=== PATIENT | female | born 1990 | race Caucasian/White ===

== ENCOUNTER 2021-12-06 07:25 | Inpatient (IN) | payer OTHER, SELFPAY ==
[2021-12-06] VITALS (32 sets, daily range): BP systolic 93–129; BP diastolic 46–77; PULSE 55–130; RESP 14–18; TEMP 36.1–36.8; O2SAT 95–100; BMI 31.1
[2021-12-06 07:34] LABS: ROM Internal Control Test YES-OK TO RESULT pt. (Internal QC); ROM Patient Test POSITIVE (Negative)
[2021-12-06 08:02] LABS: Absolute Lymphocyte Count 2.55 X10^3/uL (0.83-4.51); Absolute Neutrophil Count 6.8 X10^3/uL (2.0-7.7); Basophil# 0.02 X10^3/uL; Basophil% 0.2 % (0-1); Eosinophil# 0.12 X10^3/uL; Eosinophils% 1.2 % (0-5); Hematocrit 34.1 % (37-47); Hemoglobin 12.4 g/dL (12.0-15.0); Lymphocyte # 2.55 X10^3/ul (0.83-4.51); Lymphocyte % 25.2 % (19-41); Mean Corp Hgb Conc 36.4 g/dL (32-36); Mean Corpuscular Volume 82.6 fL (81-99); Mean Platelet Vol. 9.3 fl (6.2-12.0); Monocyte# 0.57 X10^3/uL; Monocyte% 5.6 % (0-10); NRBC Flagged by Analyzer 0 % (0-5); Neutrophil # 6.79 X10^3/uL (2.7-7.7); Neutrophil % 67.3 % (47-70); Platelet Count 258 K/mm3 (150-450); RBC Distribution Width CV 12.5 % (11.6-14.6); RBC Distribution Width SD 37.2 fl (35.1-43.9); Red Blood Count 4.13 M/mm3 (4.2-5.4); White Blood Count 10.1 K/mm3 (4.4-11.0)
[2021-12-06 09:25] LABS: Group B Strep DNA By PCR Negative (Negative); Internal Control PASS; Probe Check PASS; Specimen Processing Control PASS
--- NOTE | 2021-12-06 09:40 | PCM.PN.BLA ---
Progress Note 35 weeks, SROM, BREECH- Attempted ECV. pt was counseled on risks of ECV including but no limited to pain, abruption, intolerance, need for cs. back on maternal right- first attmept for forward roll with JACKIE gay assisting. Unable to rotate. Second attempt at backward roll, unable to successfully rotate. At this time decision to stop attempt at ECV and proceed with CS. OR team notified.
--- NOTE | 2021-12-06 12:57 | HP.PCM.OB_ITS ---
HPI - General General Date of Admission: 12/06/21 HPI Narrative LILLY KASPER, is a 31 F who presents at 35w1d by LMP. Presents with PPROM at 0130 am for clear fluid. Presented to labor and delivery and admitted for positive ROM plus. Irregular contractions and rating 2/10. OB history of thyroid disorder. PFSH PFS Medical History (Updated 12/06/21 @ 18:51 by Ericka Arboleda CNM) Appendicitis Thyroid disorder Medical History no medical history Home Medications cholecalciferol (vitamin D3) [Vitamin D3] 1,000 mcg PO DAILY 12/06/21 [History Last Taken 12/04/21] levothyroxine [Synthroid] 100 mcg PO DAILY 12/06/21 [History Last Taken 12/05/21] [id number] [] 1 tab PO DAILY 12/06/21 [History Last Taken 12/05/21] Allergy/AdvReac Type Severity Reaction Status Date / Time amoxicillin Allergy Rash Verified 12/06/21 06:49 Surgical History (Updated 12/06/21 @ 08:04 by Corin Mejía) H/O partial thyroidectomy Social History Smoking Status: Never smoker History Elective abortions Hx Para 1 Spontaneous abortions Hx # Term Pregnancies Ectopic pregnancies Hx # Pregnancies Multiple births # of living children NST FHR Rate Baby A Baseline: 125 Variability:: Moderate Accelerations:: 15 x 15 Decelerations:: None FHR Category:: Category I Uterine Activity:: Irregular, mild to moderate ROS Constitutional Constitutional: Reports systems reviewed and no addt'l complaints, except as documented; Denies headache(s) Eyes Eyes: Denies acute decrease in peripheral vision, blurry vision or change in vision ENT HEENT: Reports systems reviewed and no addt'l complaints, except as documented Cardiovascular Cardiovascular: Denies chest pain or dizziness Respiratory/Chest Respiratory/Chest: Denies cough, dyspnea, dyspnea on exertion, shortness of breath at rest or shortness of breath with exertion Gastrointestinal Gastrointestinal: Denies abdominal pain, diarrhea, nausea or vomiting Genitourinary Genitourinary: Denies abdominal discomfort or movement Musculoskeletal Musculoskeletal: Denies limited range of motion Integumentary Integumentary: Reports systems reviewed and no addt'l complaints, except as do cumented Neurologic Neurologic: Reports systems reviewed and no addt'l complaints, except as documented Psychiatric Psychiatric: Reports systems reviewed and no addt'l complaints, except as documented Endocrine Endocrinology: Reports systems reviewed and no addt'l complaints, except as documented Hematologic/Lymphatic Hematologic/Lymphatic: Reports systems reviewed and no addt'l complaints, except as documented Allergic/Immunologic Allergic/Immunologic: Reports systems reviewed and no addt'l complaints, except as documented Vital Signs Vital Signs Vital Signs: 12/06/21 06:46 12/06/21 06:47 12/06/21 09:10 Temperature 97.7 F L Temperature Source Temporal Pulse Rate 80 105 H Blood Pressure 117/76 113/77 BP Systolic 117 113 BP Diastolic 76 77 Pulse Ox 98 97 12/06/21 09:11 12/06/21 09:12 12/06/21 12:02 Temperature 97.5 F L Temperature Source Temporal Temporal Pulse Rate 87 Blood Pressure 129/72 H BP Systolic 129 BP Diastolic 72 Pulse Ox 98 98 12/06/21 12:03 Temperature 97.9 F Temperature Source Pulse Rate Blood Pressure BP Systolic BP Diastolic Pulse Ox Weight Weight: 199 lb 3.2 oz Body Mass Index (BMI) 31.1 Physical Exam Narrative: Per Lotus Saba CNM Manual OB Exam: estimated gestational size appropriate, presentation cephalic, dilated 1cm, effaced 50 and station -2 Amniotic Fluid: clear amniotic fluid and ROM+plus Labs Labs Labs: Blood Type A POSITIVE Antibody Screen NEGATIVE Hct 34.1 % (37-47) L Hgb 12.4 g/dL (12.0-15.0) Group B Strep DNA Negative (Negative) RPR negative Rubella Immune HBsAG negative Hep C negative HIV negative A positive GC/CT negative GBS negative Assessment & Plan (1) premature rupture of membranes (PPROM) delivered, current hospitalization: (2) 35 weeks gestation of : (3) Thyroid disorder: PLAN: 1) Admit to labor and delivery 2) Routine labs 3) GBS 4) COVID test 5) collaborative physician and notified of patient status 6) Continuous EFM
[2021-12-06] MEDS: 0.9% Saline Lock 10 ML Syringe IV (16:25)
[2021-12-06] MEDS: Lactated Ringers 500 ML 999 ML IV (16:25)
[2021-12-06] MEDS: Lactated Ringers 1,000 ML 200 ML IV (16:56)
--- NOTE | 2021-12-06 18:17 | PN.OBGYN_ITS ---
Subjective Subjective Resting comfortably in bed, at bedside. Feels baby is in a different position, feeling different pressure. Objective Data Objective Data Vital Signs: Vital Signs Temp Pulse BP Pulse Ox 97.7 F L 75 113/69 97 12/06/21 17:11 12/06/21 17:11 12/06/21 17:11 12/06/21 17:11 Weight: 199 lb 3.2 oz Body Mass Index (BMI) 31.1 Lab / Micro Data Result Diagrams: 12/06/21 07:45 Labs: Laboratory Results - last 24 hr 12/06/21 06:57: Group B Strep DNA Negative, Specimen Comment Not Reportable 12/06/21 07:00: Vag Amniotic Fld Detect POSITIVE H 12/06/21 07:45: WBC 10.1, RBC 4.13 L, Hgb 12.4, Hct 34.1 L, MCV 82.6, MCH 30.0, MCHC 36.4 H, RDW Std Deviation 37.2, RDW Coeff of Yonatan 12.5, Plt Count 258, MPV 9.3, Immature Gran % (Auto) 0.500, Neut % (Auto) 67.3, Lymph % (Auto) 25.2, [place] % (Auto) 5.6, Eos % (Auto) 1.2, Baso % (Auto) 0.2, Absolute Neuts (auto) 6.8, Absolute Lymphs (auto) 2.55, Nucleated RBC % 0 12/06/21 07:45: Blood Type A POSITIVE, Antibody Screen NEGATIVE Micro: Microbiology 12/06/21 07:45 Nasal Secretion SARS-CoV-2 Antigen (Rapid) - Final Physical Exam Narrative: Limited bedside US showing breech Manual OB Exam: dilated 1cm, effaced 60% and station -3 NST FHR Rate Baby A Baseline: 125 Variability:: Moderate Accelerations:: 15 x 15 Decelerations:: None FHR Category:: Category I Uterine Activity:: Irregular every 5 minutes, mild to moderate Assessment & Plan (1) 35 weeks gestation of : (2) premature rupture of membranes (PPROM) delivered, current hospitalization: (3) Breech presentation: PLAN: 1) Discussed with patient presentation now breech. Discussed option for ECV or primary section. 2) notified and will be coming to labor and delivery for evaluation.
--- NOTE | 2021-12-06 18:45 | PCM.PN.BLA ---
Progress Note pt seen at bedside after call from JACKIE Arboleda regarding breech presentation. Pt SROM 1:30 current vaginal exam /-3, breech- attempted cephalic version after discussion of risks /benefits/alternatives. Failed Attempted ECV- pt counseled on Primary CS including risks of bleeding, infection, injury to pelvic structures including bladder, vessels and other pelvic structures. OR Team notified.
[2021-12-06] MEDS: Cefazolin 2 GM in 0.9% Normal Saline 100 ML IV (19:07)
[2021-12-06] MEDS: Sodium Citrate/Citric Acid 30 ML UDC PO (19:14)
--- NOTE | 2021-12-06 19:53 | EX.PCM.OBRPT ---
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 Presentation: Positive for Complete Breech Amniotic Membrane Rupture Type: Spontaneous Amniotic Fluid Description: Clear Placental Delivery Description: Expressed Placenta Disposition: [facility] Cord Vessel Description: 3 Vessels Cord Entanglement: - (loose body cord ) A Gender: Male (1 minute): 8 (5 minute): 9 Delayed Cord Clamping: Yes Complications Risks of Surgery Discussed w/Patient: Bleeding, Anesthesia Risks, Infection and Injury to surrounding structure(s) including bowel and bladder Complications: none Admit VTE Documentation VTE Present on Admission: Yes VTE Mechan Device Prophylaxis: SCD's VTE Pharm Prophylaxis Ordered: No Reason Prophylaxis Not Ordered: Procedure Not Indicated
[2021-12-06] MEDS: Oxytocin 30 units/NS 500 ml 30 UNITS/500 ML IV.SOLN 167 UNITS IV (20:30)
[2021-12-06] MEDS: Ketorolac 30 MG/ML Syringe IV (20:50)
[2021-12-06] MEDS: Acetaminophen 500 MG Tablet 1000 MG PO (20:51)
--- NOTE | 2021-12-06 22:10 | NURSING ---
RN x2 assist to change maria del carmen pad and clean pt, small amount of blood shadow noted on lt side of dressing after repositioning pt. Blood circled and oncoming RN aware.
--- NOTE | 2021-12-06 22:10 | NURSING ---
Report given to Jennifer COPELAND, taking over pt care at this time.
[2021-12-06] MEDS: Lactated Ringers 1,000 ML 100 ML IV (23:35)
[2021-12-07] VITALS (7 sets, daily range): BP systolic 98–118; BP diastolic 59–68; PULSE 57–70; RESP 16; TEMP 36.4–36.7; O2SAT 97–99
[2021-12-07] MEDS: Ketorolac 30 MG/ML Syringe IV ×3 (03:43→15:15)
[2021-12-07] MEDS: Acetaminophen 500 MG Tablet 1000 MG PO ×4 (03:43→21:27)
--- NOTE | 2021-12-07 03:53 | NURSING ---
Pt refusing to try to get out of bed at this time. Patient states that she is feeling really tired. She would like to try to get out of bed in an hour.
--- NOTE | 2021-12-07 04:58 | PN.OBGYN_ITS ---
Subjective Subjective Patient seen at bedside. Pain controlled. Denies any headache, vision changes, SOB or CP. without difficulty. Objective Data Objective Data Dressing Dry and intact Vital Signs: Vital Signs Temp Pulse Resp BP Pulse Ox 97.8 F 69 16 98/59 L 97 12/07/21 03:46 12/07/21 03:46 12/07/21 03:46 12/07/21 03:46 12/07/21 03:46 Oxygen Delivery Method Room Air Weight: 199 lb 3.2 oz Body Mass Index (BMI) 31.1 Intake & Output: Intake and Output for Last 24 Hours 12/05/21 12/06/21 12/07/21 23:59 23:59 23:59 Intake Total 1954.86 / 1954.86 Output Total 200 / 200 Balance 1754.86 / 1754.86 Lab / Micro Data Result Diagrams: 12/06/21 07:45 Labs: Laboratory Results - last 24 hr 12/06/21 06:57: Group B Strep DNA Negative, Specimen Comment Not Reportable 12/06/21 07:00: Vag Amniotic Fld Detect POSITIVE H 12/06/21 07:45: WBC 10.1, RBC 4.13 L, Hgb 12.4, Hct 34.1 L, MCV 82.6, MCH 30.0, MCHC 36.4 H, RDW Std Deviation 37.2, RDW Coeff of Yonatan 12.5, Plt Count 258, MPV 9.3, Immature Gran % (Auto) 0.500, Neut % (Auto) 67.3, Lymph % (Auto) 25.2, [place] % (Auto) 5.6, Eos % (Auto) 1.2, Baso % (Auto) 0.2, Absolute Neuts (auto) 6.8, Absolute Lymphs (auto) 2.55, Nucleated RBC % 0 12/06/21 07:45: Blood Type A POSITIVE, Antibody Screen NEGATIVE Micro: Microbiology 12/06/21 07:45 Nasal Secretion SARS-CoV-2 Antigen (Rapid) - Final ROS Eyes Eyes: Denies blurry vision, change in vision or spots in vision ENT HEENT: Denies dizziness or headache(s) Cardiovascular Cardiovascular: Denies abdominal pain, chest pain or dyspnea Respiratory/Chest Respiratory/Chest: Denies cough, dyspnea, shortness of breath at rest or shortness of breath with exertion Gastrointestinal Gastrointestinal: Denies abdominal pain, diarrhea or vomiting Genitourinary Genitourinary: Denies change in urinary stream, difficulty urinating or dysuria Musculoskeletal Musculoskeletal: Reports none Integumentary Integumentary: Denies rash Neurologic Neurologic: Denies dizziness, headache(s), memory loss or weakness Physical Exam Narrative Dressing is dry and intact Const alert and no apparent distress General Appearance: cooperative and comfortable Exam Limitations: no limitations HEENT normocephalic Eyes General Eye: normal appearance of both eyes Neck full ROM General: normal visual inspection Chest Chest: symmetrical chest wall rise Resp normal respiratory effort and normal air movement Effort and Inspection: symmetric chest movement Auscultation: clear to auscultation bilaterally Cardio regular rate and regular rhythm GI normal to inspection, nondistended, normoactive bowel sounds Back/Spine normal ROM Extremity full ROM and no calf tenderness General Extremity: normal exam except as noted Skin no rashes or lesions noted Neuro CN's II-XII intact bilaterally Psych mental status grossly normal Assessment & Plan (1) Breech presentation: QUALIFIERS: Fetus number: single or unspecified fetus Qualified Code(s): O32.1XX0 - Maternal care for breech presentation, not applicable or unspecified (2) S/P primary low transverse : (3) Thyroid disorder: (4) 35 weeks gestation of : PLAN: PO Day 1 Primary C/S Pain control support Ambulation Anticipate discharge home tomorrow
[2021-12-07 06:08] LABS: Hematocrit 31.5 % (37-47); Mean Corp Hgb Conc 34.9 g/dL (32-36); Mean Corpuscular Hgb 29.1 pg (27.0-32.0); Mean Corpuscular Volume 83.3 fL (81-99); Mean Platelet Vol. 9.6 fl (6.2-12.0); Platelet Count 226 K/mm3 (150-450); RBC Distribution Width CV 12.4 % (11.6-14.6); RBC Distribution Width SD 37.6 fl (35.1-43.9); Red Blood Count 3.78 M/mm3 (4.2-5.4); White Blood Count 10.2 K/mm3 (4.4-11.0)
[2021-12-07] MEDS: Levothyroxine 100 MCG Tablet PO (06:46)
[2021-12-07] MEDS: Senna/Docusate Sodium 1 Tablet PO (09:16)
[2021-12-07] MEDS: 0.9% Saline Lock 10 ML Syringe IV ×2 (09:17→15:16)
[2021-12-07] MEDS: Ibuprofen 600 MG Tablet PO (21:28)
[2021-12-08 01:30] VITALS: BP 115/64; PULSE 65; RESP 16; TEMP 36.1; O2SAT 97
[2021-12-08] MEDS: Ibuprofen 600 MG Tablet PO ×2 (04:25→10:47)
[2021-12-08] MEDS: Acetaminophen 500 MG Tablet 1000 MG PO ×2 (04:25→10:47)
[2021-12-08] MEDS: Levothyroxine 100 MCG Tablet PO (06:27)
[2021-12-08 08:38] VITALS: BP 113/58; PULSE 66; RESP 16; TEMP 36.3; O2SAT 94
--- NOTE | 2021-12-08 09:00 | PCM.PN.OB ---
Subjective Subjective Patient seen at bedside. Feeling good. Pain is controlled with medications. Ambulating and voiding without difficulty. Had BM today. Denies any headache, dizziness, SOB, or CP. without difficulty. Desires discharge home today. Objective Data Objective Data Vital Signs: Vital Signs Temp Pulse Resp BP Pulse Ox 97.4 F L 66 16 113/58 L 94 12/08/21 08:38 12/08/21 08:38 12/08/21 08:38 12/08/21 08:38 12/08/21 08:38 Oxygen Delivery Method Room Air Weight: 199 lb 3.2 oz Body Mass Index (BMI) 31.1 Intake & Output: Intake and Output for Last 24 Hours 12/06/21 12/07/21 12/09/21 23:59 23:59 00:59 Intake Total 1954.86 / 1954.86 791.67 / 791.67 Output Total 200 / 200 700 / 700 Balance 1754.86 / 1754.86 91.67 / 91.67 Lab / Micro Data Result Diagrams: 12/07/21 05:30 Micro: Microbiology 12/06/21 07:45 Nasal Secretion SARS-CoV-2 Antigen (Rapid) - Final ROS Eyes Eyes: Denies blurry vision, change in vision or spots in vision ENT HEENT: Denies dizziness or headache(s) Cardiovascular Cardiovascular: Denies abdominal pain, chest pain or dyspnea Respiratory/Chest Respiratory/Chest: Denies cough, dyspnea, shortness of breath at rest or shortness of breath with exertion Gastrointestinal Gastrointestinal: Denies abdominal pain, diarrhea or vomiting Genitourinary Genitourinary: Denies change in urinary stream, difficulty urinating or dysuria Musculoskeletal Musculoskeletal: Reports none Integumentary Integumentary: Denies rash Neurologic Neurologic: Denies dizziness, headache(s), memory loss or weakness Physical Exam Narrative Dressing is dry and intact Const alert and no apparent distress General Appearance: cooperative and comfortable Exam Limitations: no limitations HEENT normocephalic Eyes General Eye: normal appearance of both eyes Neck full ROM General: normal visual inspection Chest Chest: symmetrical chest wall rise Resp normal respiratory effort and normal air movement Effort and Inspection: symmetric chest movement Auscultation: clear to auscultation bilaterally Cardio regular rate and regular rhythm GI normal to inspection, nondistended, normoactive bowel sounds Back/Spine normal ROM Extremity full ROM and no calf tenderness General Extremity: normal exam except as noted Skin no rashes or lesions noted Neuro CN's II-XII intact bilaterally Psych mental status grossly normal Assessment & Plan (1) S/P primary low transverse : PLAN: PO #2 Primary C/S Pain control Routine care Continue ambulation D/C home with follow up in office 1 week
--- NOTE | 2021-12-08 09:04 | PCM.DC.SUM ---
Providers Date of Admission: 12/06/21 Primary Care Physician: RODRIGO MAYORGA Reason For Visit: LABOR & DELIVERY Diagnosis Discharge Diagnosis (1) S/P primary low transverse : Status: Acute Code(s): Z98.891 - History of uterine scar from previous surgery Medications at Discharge Home Medications cholecalciferol (vitamin D3) 1,000 mcg PO DAILY 12/06/21 zblkealm-[id number]-[id number]-FA 1 tab PO DAILY 12/06/21 levothyroxine 100 mcg PO DAILY@0600 #0 tab 12/08/21 oxycodone 5 - 10 mg PO Q4H PRN PRN 5 Days #14 tab 12/08/21 Hospital Course Operations section Summary of Care Provided Hospital Course: Patient for primary section. Hospital course was uneventful. Physical Exam Narrative Dressing is dry and intact Const alert and no apparent distress General Appearance: cooperative and comfortable Exam Limitations: no limitations HEENT normocephalic Eyes General Eye: normal appearance of both eyes Neck full ROM General: normal visual inspection Chest Chest: symmetrical chest wall rise Resp normal respiratory effort and normal air movement Effort and Inspection: symmetric chest movement Auscultation: clear to auscultation bilaterally Cardio regular rate and regular rhythm GI normal to inspection, nondistended, normoactive bowel sounds Back/Spine normal ROM Extremity full ROM and no calf tenderness General Extremity: normal exam except as noted Skin no rashes or lesions noted Neuro CN's II-XII intact bilaterally Psych mental status grossly normal Weight / BMI Weight Weight: 199 lb 3.2 oz Body Mass Index (BMI) 31.1 ABG / Lab / Microbiology Data Result Diagrams: 12/07/21 05:30 Microbiology: Microbiology 12/06/21 07:45 Nasal Secretion SARS-CoV-2 Antigen (Rapid) - Final D/C Instructions Discharge Diet: No restrictions May resume sexual activity in: 6-8 weeks Weight Bearing Status: Weight bearing as tolerated Lifting Restrictions: 20 lbs Call your doctor if your incision/area has: Continuous Slow Oozing, Increased Pain/ Swelling, Increased Redness, Foul Smelling Discharge and Swelling at the incision site Call your doctor if you observe: Fever of 101 or Higher, Inability to urinate, Using more than 1 pad per hour, Shortness of breath, Chest pain, Calf discomfort and Uncontrolled pain Remove Dressing in: 5 days Cleanse incision/area with: Soap & Water and Keep Dressing Clean & Dry When: 1 week in office for incision check or sooner if needed 6 weeks Meaningful Use Info Meaningful Use Diagnoses (Choose all that apply): None applicable Discharge Plan Admission Admit Date/Time: 12/06/21 07:25 Primary Reason for Your Visit: Labor and Delivery/ C/S Attending Provider: Lotus Saba Discharge Orders/Prescriptions Prescriptions: New oxycodone 5 mg Tablet 5 - 10 mg PO Q4H PRN PRN (Reason: Pain Score 4-10) 5 Days Qty: 14 RF: 0 levothyroxine 100 mcg Tablet 100 mcg PO DAILY@0600 Qty: 0 RF: 0 Continued twlbzzyk-srn-Ys-FA 1 mg Tablet 1 tab PO DAILY RF: 0 cholecalciferol (vitamin D3) 100 mcg (4,000 unit) Capsule 1,000 mcg PO DAILY RF: 0 Discontinued levothyroxine [Synthroid] 100 mcg Tablet 100 mcg PO DAILY RF: 0 Referrals / Follow Up: RODRIGO MAYORGA [Other] Disposition Disposition (needs filled in before D/C Order can be placed): Home, Self Care
[2021-12-08] MEDS: Senna/Docusate Sodium 1 Tablet PO (10:47)
[2021-12-08 14:15] VITALS: BP 114/66; PULSE 75; RESP 17; TEMP 37.1; O2SAT 95
--- NOTE | 2021-12-12 18:10 | NURSING ---
Mother doing well on follow up call, seeing in area near her, she lives 1 [place]/2 hours away. really liked quentin
== END 2021-12-08 15:35 | disposition home or self-care (01) | DRG 788 ==
LOC: WPOUT 07:28 → WP 07:28
PROVIDERS: Obstetrics & Gynecology; Admitting Provider Advanced Practice Midwife; Referring Provider Advanced Practice Midwife; Visit Provider Advanced Practice Midwife
DX: O42.913 Preterm premature rupture of membranes, unspecified as to length of time between rupture and onset of labor, third trimester (principal); E07.9 Disorder of thyroid, unspecified; O32.1XX0 Maternal care for breech presentation, not applicable or unspecified; O99.284 Endocrine, nutritional and metabolic diseases complicating childbirth; Z20.822 Contact with and (suspected) exposure to COVID-19; O69.82X0 Labor and delivery complicated by other cord entanglement, without compression, not applicable or unspecified; Z3A.35 35 weeks gestation of pregnancy; Z79.890 Hormone replacement therapy; Z79.899 Other long term (current) drug therapy; Z37.0 Single live birth
CPT/HCPCS: 59025; 59050; 84112; 85025; 85027; 86850; 86900; 86901; 87081; 87426; 87653; 99218; J7120; A4216; G0378

== ENCOUNTER 2023-03-29 22:45 | Inpatient (IN) | payer OTHER, SELFPAY ==
[2023-03-29 22:14] VITALS: BMI 31.1
[2023-03-29 22:39] LABS: ROM Internal Control Test YES-OK TO RESULT pt. (Internal QC)
[2023-03-29 22:41] LABS: ROM Patient Test POSITIVE (Negative); Record Kit Lot#, ROM+ K1374
--- NOTE | 2023-03-29 23:13 | PCM.HP.OB ---
HPI - General General Date of Admission: 03/29/23 HPI Narrative LILLY KASPER, is a 33 F who presents at 36w4d with PPROM. Rupture of membranes today at 0200. Labored at home and monitored movement and temperature. Notified the hospital this evening of rupture and presented to hospital. Maternal Data Information ROSA M Calculator Estimated Delivery Date Method Current WG Current Estimate 04/22/23 Manual 36w 4d PFSH PFSH Medical History (Updated 03/29/23 @ 23:32 by Ericka Arboleda CNM) 35 weeks gestation of Appendicitis Breech presentation premature rupture of membranes (PPROM) delivered, current hospitalization Thyroid disorder Thyroid disorder Home Medications cholecalciferol (vitamin D3) 100 mcg (4,000 unit) capsule 1,000 mcg PO DAILY supplement 12/06/21 [History Last Taken 12/04/21] bimnjtnt-ayl-[id number]-FA 1 mg tablet 1 tab PO DAILY 12/06/21 [History Last Taken 12/05/21] levothyroxine 100 mcg tablet 100 mcg PO DAILY@0600 #0 tabs 12/08/21 [Rx Last Taken Unknown] oxycodone 5 mg tablet 5 - 10 mg (1 - 2 x 5 mg) PO Q4H PRN PRN Pain Score 4-10 5 days #14 tabs 12/08/21 [Rx Last Taken Unknown] Allergy/AdvReac Type Severity Reaction Status Date / Time amoxicillin Allergy Rash Verified 12/06/21 06:49 Surgical History (Updated 03/29/23 @ 23:32 by Ericka Arboleda CNM) H/O partial thyroidectomy S/P primary low transverse Social History Smoking Status: Never smoker History Elective abortions Hx Para 2 Spontaneous abortions Hx # Term Pregnancies Ectopic pregnancies Hx # Pregnancies Multiple births # of living children NST FHR Rate Baby A Baseline: 125 Variability:: Moderate Accelerations:: 15 x 15 Decelerations:: None FHR Category:: Category I Uterine Activity:: Every 5 to 20 minutes, mild ROS Constitutional Constitutional: Reports systems reviewed and no addt'l complaints, except as documented; Denies headache(s) Eyes Eyes: Denies acute decrease in peripheral vision, blurry vision or change in vision ENT HEENT: Reports systems reviewed and no addt'l complaints, except as documented Cardiovascular Cardiovascular: Denies chest pain or dizziness Respiratory/Chest Respiratory/Chest: Denies cough, dyspnea, dyspnea on exertion, shortness of breath at rest or shortness of breath with exertion Gastrointestinal Gastrointestinal: Denies abdominal pain, diarrhea, nausea or vomiting Genitourinary Genitourinary: Denies abdominal discomfort Musculoskeletal Musculoskeletal: Denies limited range of motion Integumentary Integumentary: Reports systems reviewed and no addt'l complaints, except as documented Neurologic Neurologic: Reports systems reviewed and no addt'l complaints, except as documented Psychiatric Psychiatric: Reports systems reviewed and no addt'l complaints, except as documented Endocrine Endocrinology: Reports systems reviewed and no addt'l complaints, except as documented Hematologic/Lymphatic Hematologic/Lymphatic: Reports systems reviewed and no addt'l complaints, except as documented Allergic/Immunologic Allergic/Immunologic: Reports systems reviewed and no addt'l complaints, except as documented Vital Signs Vital Signs Vital Signs: Weight Weight: 198 lb 13.711 oz Body Mass Index (BMI) 31.1 Physical Exam Const alert and oriented x3 General Appearance: cooperative Orientation / Consciousness: awake, oriented to person, oriented to place and oriented to time Exam Limitations: no limitations HEENT normocephalic Head and Scalp: normal to inspection, normocephalic and atraumatic Face and Sinus: normal facial exam Eyes General Eye: normal appearance of both eyes Neck full ROM Chest Chest: symmetrical chest wall rise Resp normal respiratory effort and normal air movement Auscultation: clear to auscultation bilaterally Cardio regular rate, regular rhythm, S1 normal heart sound, S2 normal heart sound, no murmurs, no rub, no gallops and no clicks GI normal to inspection, nondistended, normoactive bowel sounds and non-tender GI Narrative: Limited bedside US confirms cephalic presentation. appearance of the vagina normal Narrative: declines cervical exam. Bladder / Kidney Exam: no CVA tenderness Back/Spine normal ROM Extremity normal to inspection and full ROM Skin no rashes or lesions noted Neuro oriented x3, CN's II-XII intact bilaterally and moves all extremities Sensorium / Orientation: awake, alert and oriented to person Motor Exam: clonus absent Deep Tendon Reflexes: Rt Patellar (L4): 2+ and Lt Patellar (L4): 2+ Labs Labs Labs: Blood Type A POSITIVE Antibody Screen NEGATIVE Hct 31.5 % (37-47) L Hgb 11.0 g/dL (12.0-15.0) L Group B Strep DNA Negative (Negative) HIV negative RPR negative GC/CT negative 1hr GCT elevated, 3hr GTT negative GBS negative Rubella Immune HBsAG negative HepC negative Assessment & Plan (1) 36 weeks gestation of : (2) History of delivery: (3) Encounter for trial of labor: COMMENT: History of vaginal delivery with first child. LTCS with second child due to breech presentation. Desires TOLAC, consent signed. (4) Oral herpes simplex infection: COMMENT: Oral HSV outbreak during with prophylaxis PLAN: Plan 1) Admit to labor and delivery with PPROM 2) ROM plus positive, limited bedside confirms cephalic presentation. 3) Declines cervical exams due to limited discomfort but will consent as labor progresses 4) Continuous EFM 5) Declines epidural for pain management or placement due to TOLAC. Reviewed risk of uterine rupture and requirement of general anesthesia if emergency, voiced understanding and informed refusal. 6) GBS negative 7) Reviewed option for pitocin for augmentation and agreeable for active management at this time 8) collaborative physician and notified of patient status. Presented to hospital for duration of labor due to TOLAC 9) Desires TOLAC, consent form signed in office and wishes to proceed. 10) Declines LARC
[2023-03-29] MEDS: Lactated Ringers 1,000 ML 50 ML IV (23:30)
[2023-03-29 23:47] VITALS: BP 115/58; PULSE 58; TEMP 36.7; O2SAT 97
[2023-03-29 23:59] LABS: Absolute Lymphocyte Count 3.11 X10^3/uL (0.83-4.51); Absolute Neutrophil Count 6.2 X10^3/uL (2.0-7.7); Basophil# 0.03 X10^3/uL; Basophil% 0.3 % (0-1); Eosinophil# 0.14 X10^3/uL; Eosinophils% 1.4 % (0-5); Hematocrit 32.2 % (37-47); Hemoglobin 10.6 g/dL (12.0-15.0); Lymphocyte # 3.11 X10^3/ul (0.83-4.51); Lymphocyte % 30.7 % (19-41); Mean Corp Hgb Conc 32.9 g/dL (32-36); Mean Corpuscular Hgb 28.1 pg (27.0-32.0); Mean Corpuscular Volume 85.4 fL (81-99); Mean Platelet Vol. 9.6 fl (6.2-12.0); Monocyte# 0.64 X10^3/uL; Monocyte% 6.3 % (0-10); NRBC Flagged by Analyzer 0 % (0-5); Neutrophil # 6.16 X10^3/uL (2.7-7.7); Neutrophil % 60.7 % (47-70); Platelet Count 243 K/mm3 (150-450); RBC Distribution Width CV 12.1 % (11.6-14.6); RBC Distribution Width SD 37.2 fl (35.1-43.9); Red Blood Count 3.77 M/mm3 (4.2-5.4); White Blood Count 10.1 K/mm3 (4.4-11.0)
[2023-03-30] VITALS (40 sets, daily range): BP systolic 94–126; BP diastolic 52–74; PULSE 50–88; RESP 16–18; TEMP 36–37; O2SAT 80–99
[2023-03-30] MEDS: Oxytocin 15 Units/NS 250ml 15 UNITS/250 ML IV.SOLN 2 UNITS IV (00:01)
[2023-03-30 00:33] LABS: Syphilis Antibodies Non-reactive
[2023-03-30] MEDS: LACTATED RINGERS 500 ML 999 ML IV (09:23)
[2023-03-30] MEDS: fentaNYL-bupivacaine (epidural) 100 ML BAG EPIDURAL (10:58)
--- NOTE | 2023-03-30 12:18 | EX.PCM.OBRPT ---
Assessment & Plan (1) , delivered: Maternal Data Information ROSA M Calculator Estimated Delivery Date Method Current WG Current Estimate 04/22/23 Manual 36w 5d Vaginal Delivery Maternal Presentation Maternal Presentation: Spontaneous Rupture of Membranes Maternal Presentation: PPROM Type of Induction: Pitocin (augmentation) Operative Information Date of Procedure: 03/30/23 Pre-Operative Diagnosis: PPROM Post-Operative Diagnosis: Surgery / Procedure Performed: Type of Anesthesia: Epidural Estimated Blood Loss: 300 ml Time of Delivery: 12:01 Findings Description of Procedure: Comfortable in bed with epidural. Asked to check if anything was present at vaginal opening and head was present. No pushing efforts and spontaneous expulsive efforts. Nursing called to room and head already delivered, nursing assisted with remainder of delivery. I was already en route to hospital to come assess patient and arrived to room after delivery. Epidural for pain management. of viable female infant over intact perineum. APGARS 8,9 respectively. Infant head delivered with body immediately forthcoming. Placed on maternal abdomen, strong cry. Mouth and nares suctioned for secretions. Pitocin started for active 3rd stage management. Cord doubly clamped and cut by FOB after pulsations ceased, delayed cord clamping. Placenta delivered intact via yary, 3 vessel cord intact. Perineum inspected and revealed intact. Fundus firm and hemostasis achieved. EBL 350ml. Mom and baby stable, planning to breastfeed. Family bonding well. Dr. Turpin notified of delivery. Presentation: Vertex Amniotic Membrane Rupture Type: Spontaneous Amniotic Fluid Description: Clear Placental Delivery Description: Spontaneous Placenta Disposition: [facility] Cord Vessel Description: 3 Vessels Cord Entanglement: None Infant A Gender: Female (1 minute): 8 (5 minute): 9 Delayed Cord Clamping: Yes Post Vaginal Delivery Medications Given After Delivery: IV Pitocin Episiotomy Description: None Laceration: None Complication Complications: None
[2023-03-30] MEDS: Oxytocin 15 Units/NS 250ml 15 UNITS/250 ML IV.SOLN 83 UNITS IV (12:39)
[2023-03-30] MEDS: Senna/Docusate Sodium 1 Tablet PO (16:42)
--- NOTE | 2023-03-30 16:45 | NURSING ---
Patient unable to void, so went in the shower to help facilitate void. Patient voided in the shower. Unable to assess amount.
[2023-03-30] MEDS: Acetaminophen 500 MG Tablet 1000 MG PO (18:29)
[2023-03-30] MEDS: Naproxen 500 MG Tablet PO (19:44)
[2023-03-31 00:30] VITALS: BP 111/68; PULSE 77; RESP 16; TEMP 36.6
[2023-03-31] MEDS: Acetaminophen 500 MG Tablet 1000 MG PO (02:03)
[2023-03-31 04:50] VITALS: BP 105/50; PULSE 67; RESP 14; TEMP 36.8
[2023-03-31] MEDS: Levothyroxine 100 MCG Tablet PO (04:55)
[2023-03-31 08:19] VITALS: BP 102/49; PULSE 63; RESP 16; TEMP 36.5; O2SAT 96
--- NOTE | 2023-03-31 10:01 | PCM.PN.OB ---
Subjective Subjective Doing well per patient and nursing staff. Ambulating and taking PO without difficulty. Voiding and passing flatus. Pain controlled. , services for assistance. Denies headache, visual changes, chest pain, shortness of breath, leg pain or increased bleeding. Lochia normal. Objective Data Objective Data Vital Signs: Vital Signs Temp Pulse Resp BP Pulse Ox O2 Del Method 97.7 F L 63 16 102/49 L 96 Room Air 03/31/23 08:19 03/31/23 08:19 03/31/23 08:19 03/31/23 08:19 03/31/23 08:19 03/31/23 08:19 Oxygen Delivery Method Room Air Weight: 198 lb 13.711 oz Body Mass Index (BMI) 31.1 Intake & Output: Intake and Output for Last 24 Hours 03/29/23 03/30/23 03/31/23 23:59 23:59 23:59 Intake Total 1941.66 / 1941.66 Output Total 700 / 700 Balance 1241.66 / 1241.66 Lab / Micro Data 03/29/23 23:30 ROS Constitutional Constitutional: Reports systems reviewed and no addt'l complaints, except as documented; Denies headache(s) Eyes Eyes: Denies acute decrease in peripheral vision, blurry vision or change in vision ENT HEENT: Reports systems reviewed and no addt'l complaints, except as documented Cardiovascular Cardiovascular: Denies chest pain or dizziness Respiratory/Chest Respiratory/Chest: Denies cough, dyspnea, dyspnea on exertion, shortness of breath at rest or shortness of breath with exertion Gastrointestinal Gastrointestinal: Denies abdominal pain, diarrhea, nausea or vomiting Genitourinary Genitourinary: Denies abdominal discomfort Musculoskeletal Musculoskeletal: Denies limited range of motion Integumentary Integumentary: Reports systems reviewed and no addt'l complaints, except as documented Neurologic Neurologic: Reports systems reviewed and no addt'l complaints, except as documented Psychiatric Psychiatric: Reports systems reviewed and no addt'l complaints, except as documented Endocrine Endocrinology: Reports systems reviewed and no addt'l complaints, except as documented Hematologic/Lymphatic Hematologic/Lymphatic: Reports systems reviewed and no addt'l complaints, except as documented Allergic/Immunologic Allergic/Immunologic: Reports systems reviewed and no addt'l complaints, except as documented Physical Exam Const alert and oriented x3 General Appearance: cooperative Orientation / Consciousness: awake, oriented to person, oriented to place and oriented to time Exam Limitations: no limitations HEENT normocephalic Head and Scalp: normal to inspection, normocephalic and atraumatic Face and Sinus: normal facial exam Eyes General Eye: normal appearance of both eyes Neck full ROM Chest Chest: symmetrical chest wall rise Resp normal respiratory effort and normal air movement Auscultation: clear to auscultation bilaterally Cardio regular rate, regular rhythm, S1 normal heart sound, S2 normal heart sound, no murmurs, no rub, no gallops and no clicks GI normal to inspection, nondistended, normoactive bowel sounds and non-tender appearance of the vagina normal Bladder / Kidney Exam: no CVA tenderness Back/Spine normal ROM Extremity normal to inspection and full ROM Skin no rashes or lesions noted Neuro oriented x3, CN's II-XII intact bilaterally and moves all extremities Sensorium / Orientation: awake, alert and oriented to person Motor Exam: clonus absent Deep Tendon Reflexes: Rt Patellar (L4): 2+ and Lt Patellar (L4): 2+ Assessment & Plan (1) , delivered: (2) Oral herpes simplex infection: COMMENT: Oral HSV outbreak during with prophylaxis PLAN: Plan 1) PPD#1 successful 2) I&O 3) Vitals stable 4) Pain management 5) D/C home today 6) Follow up at 2 weeks and 6 weeks PP
--- NOTE | 2023-03-31 10:05 | PCM.DC.SUM ---
Providers Date of Admission: 03/29/23 Primary Care Physician: RODRIGO MAYORGA Reason For Visit: VAG DELIVERY Diagnosis Discharge Diagnosis (1) , delivered: Status: Acute Code(s): O34.219 - Maternal care for unspecified type scar from previous delivery (2) Oral herpes simplex infection: Status: Acute Code(s): B00.2 - Herpesviral gingivostomatitis and pharyngotonsillitis Plan 1) PPD#1 successful 2) I&O 3) Vitals stable 4) Pain management 5) D/C home today 6) Follow up at 2 weeks and 6 weeks PP Medications at Discharge Home Medications cholecalciferol (vitamin D3) 100 mcg (4,000 unit) capsule 1,000 mcg PO DAILY supplement 12/06/21 [id number] 1 mg tablet 1 tab PO DAILY 12/06/21 levothyroxine 100 mcg tablet 100 mcg PO DAILY@0600 hypothyroid #0 tabs 12/08/21 oxycodone 5 mg tablet 5 - 10 mg (1 - 2 x 5 mg) PO Q4H PRN PRN Pain Score 4-10 5 days #14 tabs 12/08/21 magnesium 100 mg tablet 100 mg PO DAILY supplement 03/30/23 acetaminophen 500 mg tablet 1,000 mg (2 x 500 mg) PO Q6H PRN PRN Pain 1-10 Or Fever #0 tabs 03/31/23 naproxen 500 mg tablet 500 mg PO Q8H PRN PRN Pain Score 1-3 #0 tabs 03/31/23 Weight / BMI Weight Weight: 198 lb 13.711 oz Body Mass Index (BMI) 31.1 ABG / Lab / Microbiology Data 03/29/23 23:30 Meaningful Use Info Meaningful Use Diagnoses (Choose all that apply): None applicable Discharge Plan Admission Admit Date/Time: 03/29/23 22:45 Primary Reason for Your Visit: Attending Provider: Ericka Arboleda Primary Care Provider: RODRIGO MAYORGA Discharge Orders/Prescriptions Prescriptions: New acetaminophen 500 mg Tablet 1,000 mg PO Q6H PRN PRN (Reason: Pain 1-10 Or Fever) Qty: 0 0RF naproxen 500 mg Tablet 500 mg PO Q8H PRN PRN (Reason: Pain Score 1-3) Qty: 0 0RF Continued [id number] 1 mg Tablet 1 tab PO DAILY cholecalciferol (vitamin D3) 100 mcg (4,000 unit) Capsule 1,000 mcg PO DAILY Hold Instructions: patient no longer taking levothyroxine 100 mcg Tablet 100 mcg PO DAILY@0600 Qty: 0 0RF magnesium 100 mg tablet 100 mg PO DAILY No Action oxycodone 5 mg Tablet 5 - 10 mg PO Q4H PRN PRN (Reason: Pain Score 4-10) 5 Days Qty: 14 0RF Hold Instructions: patient no longer taking Referrals / Follow Up: RODRIGO MAYORGA [Other] Disposition Disposition (needs filled in before D/C Order can be placed): Home, Self Care
[2023-03-31] MEDS: Prenatal Vits Tablet 1 TABLET PO (12:30)
[2023-03-31 12:32] VITALS: BP 108/62; PULSE 72; RESP 16; TEMP 36.2; O2SAT 96
== END 2023-03-31 14:59 | disposition home or self-care (01) | DRG 806 ==
LOC: WPOUT 22:49 → WP 22:49
PROVIDERS: Admitting Provider Advanced Practice Midwife; Referring Provider Advanced Practice Midwife; Visit Provider Advanced Practice Midwife
DX: O42.913 Preterm premature rupture of membranes, unspecified as to length of time between rupture and onset of labor, third trimester (principal); Z37.0 Single live birth; O98.52 Other viral diseases complicating childbirth; B00.2 Herpesviral gingivostomatitis and pharyngotonsillitis; O34.219 Maternal care for unspecified type scar from previous cesarean delivery; Z3A.36 36 weeks gestation of pregnancy
CPT/HCPCS: 59025; 59050; 76815; 84112; 85025; 86780; 86850; 86900; 86901; 99221; J7120; G0378